=== PATIENT | female | born 1960 | race Caucasian/White ===

== ENCOUNTER 2018-11-03 09:54 | Observation (INO) | payer SELFPAY ==
[~2018-11-03] VITALS: Ht 162.6 cm; Wt 125.5 kg
[~2018-11-03 09:54] MED LIST: CELEBREX200 MG PO; CYMBALTA60 M1 PO; GUAIFEN AC 10120 ML PO; NORCO 325 MG-51 TAB PO; PREDNISONE20 M1 PO; ULTRAM50 MG PO; ZITHROMAX Z PA250 MG PO
[2018-11-03] MEDS ORDERED: GOOD NEIGHBOR200 M1 PO (10:28)
[2018-11-03 10:44] LABS: EOS # 0.1 (0.04-0.40); EOS % 1.3 % (1.0-5.0); HEMATOCRIT 47.1 % (37.0-47.0); HEMOGLOBIN 15.1 g/dL (12.5-16.0); LYMPH# 1.2 (1.50-4.00); MEAN CELL VOLUME 97 fl (78-100); MEAN CORPUSCULAR HEMOGLOBIN 31 pg (27-31); MEAN CORPUSCULAR HGB CONC 32 g/dL (33-37); MEAN PLATELET VOLUME 10.7 fl (7.4-10.4); MONO # 0.6 (0.20-0.80); NEU # 7.1 (1.40-6.50); PLATELET COUNT 235 K/mm3 (130-400); RED BLOOD COUNT 4.86 M/mm3 (4.10-5.30); RED CELL DISTRIBUTION WIDTH 13.8 % (11.5-14.5); WHITE BLOOD COUNT 9.1 K/mm3 (4.8-10.8)
[2018-11-03 10:58] LABS: ALBUMIN 4.1 g/dL (3.5-5.0); CALCIUM 10.2 mg/dL (8.4-10.2); POTASSIUM 3.9 mmol/L (3.6-5.0); TOTAL BILIRUBIN 0.8 mg/dL (0.2-1.3); TOTAL PROTEIN 7.6 g/dL (6.3-8.2)
[2018-11-03 11:39] LABS: URINE APPEARANCE HAZY; URINE COLOR YELLOW
[2018-11-03 11:40] LABS: URINE BILIRUBIN NEGATIVE (NEGATIVE); URINE GLUCOSE NEGATIVE (NEGATIVE); URINE KETONE NEGATIVE (NEGATIVE); URINE LEUKOCYTE ESTERASE NEGATIVE (NEGATIVE); URINE MUCUS PRESENT (NOT PRESENT); URINE NITRATE NEGATIVE (NEGATIVE); URINE PROTEIN(semi-quant) 1+ mg/dL (NEGATIVE); URINE UROBILINOGEN NORMAL (NORMAL); URINE WBC 0-1 /hpf (0-3)
[2018-11-03 11:41] LABS: URINE BLOOD TRACE (NEGATIVE)
[2018-11-03 18:54] VITALS: BP 127/81
[2018-11-03 18:56] VITALS: BP 127/81
[2018-11-03 23:21] VITALS: BP 142/90
[2018-11-04 03:11] VITALS: BP 114/70
[2018-11-04 06:30] VITALS: BP 106/68
[2018-11-04 08:28] LABS: CALCIUM 10.1 mg/dL (8.4-10.2); POTASSIUM 4.5 mmol/L (3.6-5.0)
[2018-11-04 08:32] LABS: HEMATOCRIT 48.1 % (37.0-47.0); HEMOGLOBIN 15.2 g/dL (12.5-16.0); MEAN CELL VOLUME 98 fl (78-100); MEAN CORPUSCULAR HEMOGLOBIN 31 pg (27-31); MEAN CORPUSCULAR HGB CONC 32 g/dL (33-37); MEAN PLATELET VOLUME 11.8 fl (7.4-10.4); PLATELET COUNT 199 K/mm3 (130-400); RED BLOOD COUNT 4.93 M/mm3 (4.10-5.30); RED CELL DISTRIBUTION WIDTH 13.6 % (11.5-14.5); WHITE BLOOD COUNT 8.8 K/mm3 (4.8-10.8)
[2018-11-04 09:15] LABS: LYMPHOCYTE 6 % (20-51); MONOCYTE 3 % (3-10); NEUTROPHILS 91 % (42-75)
[2018-11-04 11:00] VITALS: BP 139/71
[2018-11-04 15:00] VITALS: BP 136/63; BP 169/89
[2018-11-04 19:00] VITALS: BP 156/88
[2018-11-04 23:15] VITALS: BP 106/55
[2018-11-05 03:45] VITALS: BP 105/57
[2018-11-05 06:35] VITALS: BP 151/77
[2018-11-05 13:39] LABS: HEMATOCRIT 46.9 % (37.0-47.0); HEMOGLOBIN 14.8 g/dL (12.5-16.0); MEAN CELL VOLUME 98 fl (78-100); MEAN CORPUSCULAR HEMOGLOBIN 31 pg (27-31); MEAN CORPUSCULAR HGB CONC 32 g/dL (33-37); MEAN PLATELET VOLUME 11.4 fl (7.4-10.4); PLATELET COUNT 252 K/mm3 (130-400); RED BLOOD COUNT 4.79 M/mm3 (4.10-5.30); RED CELL DISTRIBUTION WIDTH 13.8 % (11.5-14.5); WHITE BLOOD COUNT 14.8 K/mm3 (4.8-10.8)
[2018-11-05 13:46] LABS: ALBUMIN 4.2 g/dL (3.5-5.0); CALCIUM 10.8 mg/dL (8.4-10.2); POTASSIUM 4.5 mmol/L (3.6-5.0); TOTAL BILIRUBIN 0.3 mg/dL (0.2-1.3); TOTAL PROTEIN 7.4 g/dL (6.3-8.2)
[2018-11-05 14:05] LABS: LYMPHOCYTE 7 % (20-51); MONOCYTE 5 % (3-10); NEUTROPHILS 88 % (42-75)
[2018-11-05 14:52] VITALS: BP 130/71
[2018-11-05 19:00] VITALS: BP 101/61
[2018-11-05 22:50] VITALS: BP 137/83
[2018-11-06 03:09] VITALS: BP 154/73
[2018-11-06 06:24] VITALS: BP 105/60
[2018-11-06 07:58] LABS: EOS % 0.1 % (1.0-5.0); HEMATOCRIT 46.8 % (37.0-47.0); HEMOGLOBIN 14.2 g/dL (12.5-16.0); LYMPH# 1.7 (1.50-4.00); MEAN CELL VOLUME 99 fl (78-100); MEAN CORPUSCULAR HEMOGLOBIN 30 pg (27-31); MEAN CORPUSCULAR HGB CONC 30 g/dL (33-37); MEAN PLATELET VOLUME 11.5 fl (7.4-10.4); MONO # 0.8 (0.20-0.80); NEU # 8.4 (1.40-6.50); PLATELET COUNT 247 K/mm3 (130-400); RED BLOOD COUNT 4.73 M/mm3 (4.10-5.30); RED CELL DISTRIBUTION WIDTH 13.9 % (11.5-14.5)
[2018-11-06 08:47] LABS: CALCIUM 10.8 mg/dL (8.4-10.2)
[2018-11-06 10:52] VITALS: BP 145/84
[2018-11-06 10:54] LABS: URINE APPEARANCE CLEAR; URINE BILIRUBIN NEGATIVE (NEGATIVE); URINE BLOOD NEGATIVE (NEGATIVE); URINE COLOR YELLOW; URINE GLUCOSE NEGATIVE (NEGATIVE); URINE KETONE NEGATIVE (NEGATIVE); URINE LEUKOCYTE ESTERASE NEGATIVE (NEGATIVE); URINE MUCUS PRESENT (NOT PRESENT); URINE NITRATE NEGATIVE (NEGATIVE); URINE PROTEIN(semi-quant) TRACE mg/dL (NEGATIVE); URINE UROBILINOGEN NORMAL (NORMAL); URINE WBC 0-1 /hpf (0-3)
[2018-11-06] MEDS ORDERED: IPRATROPIUM BROM3 M1 IH (11:06)
[2018-11-06] MEDS ORDERED: DOXYCYCLINE HYC50 M1 PO (11:06)
[2018-11-06] MEDS ORDERED: METOPROLOL SUCC25 M1 PO (11:06)
[2018-11-06] MEDS ORDERED: PANTOPRAZOLE SO40 MG PO (11:07)
[2018-11-06] MEDS ORDERED: HYDROCODONE-CHLO5 ML PO (11:07)
[2018-11-06] MEDS ORDERED: PREDNISONE20 MG PO (11:08)
[2018-11-06] MEDS ORDERED: AIRDUO RESPICL1 EAC1 IH (11:12)
[2018-11-06 15:33] VITALS: BP 128/75
[2018-11-06 19:03] VITALS: BP 160/66
[2018-11-06 23:03] VITALS: BP 133/61
[2018-11-07 02:58] VITALS: BP 152/69
[2018-11-07 06:06] VITALS: BP 141/60
[2018-11-07 06:12] LABS: EOS % 0.5 % (1.0-5.0); HEMATOCRIT 44.3 % (37.0-47.0); HEMOGLOBIN 13.8 g/dL (12.5-16.0); LYMPH# 2.2 (1.50-4.00); MEAN CELL VOLUME 100 fl (78-100); MEAN CORPUSCULAR HEMOGLOBIN 31 pg (27-31); MEAN CORPUSCULAR HGB CONC 31 g/dL (33-37); MEAN PLATELET VOLUME 11.4 fl (7.4-10.4); MONO # 0.8 (0.20-0.80); NEU # 5.2 (1.40-6.50); PLATELET COUNT 213 K/mm3 (130-400); RED BLOOD COUNT 4.45 M/mm3 (4.10-5.30); RED CELL DISTRIBUTION WIDTH 13.8 % (11.5-14.5); WHITE BLOOD COUNT 8.2 K/mm3 (4.8-10.8)
[2018-11-07 06:43] LABS: CALCIUM 10.3 mg/dL (8.4-10.2); POTASSIUM 4.1 mmol/L (3.6-5.0)
[2018-11-07] MEDS ORDERED: MIRALAX17 GM PO (08:33)
== END 2018-11-07 10:57 | disposition home or self-care (01) ==
LOC: ED 09:54 → MED/SURG 16:59
PROVIDERS: Nurse Practitioner Primary Care; ADMIT Family Medicine
DX: J44.1 Chronic obstructive pulmonary disease with (acute) exacerbation (principal); J96.11 Chronic respiratory failure with hypoxia; K21.9 Gastro-esophageal reflux disease without esophagitis; Z91.14 Patient's other noncompliance with medication regimen; I47.1 Supraventricular tachycardia; I10 Essential (primary) hypertension; G47.30 Sleep apnea, unspecified; G47.36 Sleep related hypoventilation in conditions classified elsewhere; E66.9 Obesity, unspecified; R73.9 Hyperglycemia, unspecified; Z79.82 Long term (current) use of aspirin; Z79.899 Other long term (current) drug therapy; F17.210 Nicotine dependence, cigarettes, uncomplicated; Z82.49 Family history of ischemic heart disease and other diseases of the circulatory system; Z83.3 Family history of diabetes mellitus; Z99.81 Dependence on supplemental oxygen; Z68.42 Body mass index [BMI] 45.0-49.9, adult
CPT/HCPCS: G0378; J1650; J1940; J2920; J7050; J7512

== ENCOUNTER → 2018-11-08 | Outpatient (CLI) | payer SELFPAY ==
[2018-11-07 06:06] VITALS: BP 141/60
[~2018-11-08] MED LIST changes: +AIRDUO RESPICL1 EAC1 IH; +DOXYCYCLINE HYC50 M1 PO; +GOOD NEIGHBOR200 M1 PO; +HYDROCODONE-CHLO5 ML PO; +IPRATROPIUM BROM3 M1 IH; +METOPROLOL SUCC25 M1 PO; +MIRALAX17 GM PO; +PANTOPRAZOLE SO40 MG PO; +PREDNISONE20 MG PO
== END ==
LOC: RAD 17:31
DX: I08.2 Rheumatic disorders of both aortic and tricuspid valves (principal); I47.1 Supraventricular tachycardia

== ENCOUNTER → 2018-11-22 | Outpatient (CLI) | payer OTHER ==
[2018-11-07 06:06] VITALS: BP 141/60
[2018-11-22 14:49] LABS: EOS # 0.2 (0.04-0.40); EOS % 2.5 % (1.0-5.0); HEMATOCRIT 45.1 % (37.0-47.0); HEMOGLOBIN 14.4 g/dL (12.5-16.0); LYMPH# 1.7 (1.50-4.00); MEAN CELL VOLUME 98 fl (78-100); MEAN CORPUSCULAR HEMOGLOBIN 31 pg (27-31); MEAN CORPUSCULAR HGB CONC 32 g/dL (33-37); MEAN PLATELET VOLUME 11.1 fl (7.4-10.4); MONO # 0.6 (0.20-0.80); NEU # 6.9 (1.40-6.50); PLATELET COUNT 190 K/mm3 (130-400); RED BLOOD COUNT 4.62 M/mm3 (4.10-5.30); RED CELL DISTRIBUTION WIDTH 14.1 % (11.5-14.5); WHITE BLOOD COUNT 9.4 K/mm3 (4.8-10.8)
[2018-11-22 15:28] LABS: ALBUMIN 3.8 g/dL (3.5-5.0); CALCIUM 10.2 mg/dL (8.4-10.2); POTASSIUM 4.4 mmol/L (3.6-5.0); TOTAL BILIRUBIN 0.6 mg/dL (0.2-1.3); TOTAL PROTEIN 6.8 g/dL (6.3-8.2)
[2018-11-23 03:02] LABS: T3 TOTAL 131 ng/dL (87-178)
== END ==
LOC: LAB 14:27
PROVIDERS: Internal Medicine
DX: J96.91 Respiratory failure, unspecified with hypoxia (principal); I10 Essential (primary) hypertension; I47.1 Supraventricular tachycardia; R94.6 Abnormal results of thyroid function studies

== ENCOUNTER → 2018-11-23 | Outpatient (CLI) | payer OTHER ==
[~2018-11-23] VITALS: Ht 162.6 cm; Wt 125.5 kg
[2018-11-23 10:10] VITALS: BP 144/84
== END ==
LOC: AMSURD 09:59
DX: R06.02 Shortness of breath (principal)

== ENCOUNTER → 2018-12-13 | Outpatient (CLI) | payer OTHER ==
[2018-11-23 10:10] VITALS: BP 144/84
== END ==
LOC: RAD 14:42
DX: E04.1 Nontoxic single thyroid nodule (principal); E05.90 Thyrotoxicosis, unspecified without thyrotoxic crisis or storm

== ENCOUNTER → 2018-12-31 | Outpatient (CLI) | payer OTHER ==
[2018-11-23 10:10] VITALS: BP 144/84
[2019-01-01 04:02] LABS: T3 TOTAL 126 ng/dL (87-178)
== END ==
LOC: LAB 16:01
PROVIDERS: Internal Medicine
DX: J96.91 Respiratory failure, unspecified with hypoxia (principal); J96.92 Respiratory failure, unspecified with hypercapnia; I47.1 Supraventricular tachycardia; I10 Essential (primary) hypertension; R94.6 Abnormal results of thyroid function studies

== ENCOUNTER → 2019-01-24 | Outpatient (CLI) | payer OTHER ==
[2018-11-23 10:10] VITALS: BP 144/84
[2019-01-24 18:18] LABS: URINE APPEARANCE CLEAR; URINE BILIRUBIN NEGATIVE (NEGATIVE); URINE BLOOD 50 ery/uL (NEGATIVE); URINE COLOR LIGHT YELLOW; URINE GLUCOSE NEGATIVE (NEGATIVE); URINE KETONE NEGATIVE (NEGATIVE); URINE LEUKOCYTE ESTERASE TRACE (NEGATIVE); URINE NITRATE NEGATIVE (NEGATIVE); URINE PROTEIN(semi-quant) NEGATIVE (NEGATIVE); URINE UROBILINOGEN NORMAL (NORMAL)
== END ==
LOC: LAB 16:58
PROVIDERS: Internal Medicine
DX: N30.00 Acute cystitis without hematuria (principal)

== ENCOUNTER → 2019-02-07 | Outpatient (CLI) | payer OTHER ==
[2018-11-23 10:10] VITALS: BP 144/84
[2019-02-07 14:37] LABS: CALCIUM 10.2 mg/dL (8.4-10.2); TOTAL BILIRUBIN 0.7 mg/dL (0.2-1.3)
[2019-02-07 15:50] LABS: POTASSIUM 3.7 mmol/L (3.6-5.0)
== END ==
LOC: LAB 11:50
PROVIDERS: Internal Medicine
DX: E78.5 Hyperlipidemia, unspecified (principal)

== ENCOUNTER 2019-04-01 15:40 | Outpatient (RCR) | payer OTHER ==
[2018-11-23 10:10] VITALS: BP 144/84
== END 2019-04-09 | disposition home or self-care (01) ==
LOC: CARDREHAB
DX: Z48.812 Encounter for surgical aftercare following surgery on the circulatory system (principal); Z95.5 Presence of coronary angioplasty implant and graft

== ENCOUNTER → 2019-05-07 | Outpatient (CLI) | payer OTHER ==
[2018-11-23 10:10] VITALS: BP 144/84
[2019-05-07 17:20] LABS: EOS # 0.4 (0.04-0.40); EOS % 5.5 % (1.0-5.0); HEMATOCRIT 41.6 % (37.0-47.0); LYMPH# 1.6 (1.50-4.00); MEAN CELL VOLUME 94 fl (78-100); MEAN CORPUSCULAR HEMOGLOBIN 29 pg (27-31); MEAN CORPUSCULAR HGB CONC 31 g/dL (33-37); MEAN PLATELET VOLUME 10.9 fl (7.4-10.4); MONO # 0.5 (0.20-0.80); NEU # 4.6 (1.40-6.50); PLATELET COUNT 217 K/mm3 (130-400); RED BLOOD COUNT 4.42 M/mm3 (4.10-5.30); RED CELL DISTRIBUTION WIDTH 14.2 % (11.5-14.5); WHITE BLOOD COUNT 7.1 K/mm3 (4.8-10.8)
[2019-05-07 17:58] LABS: ALBUMIN 4.1 g/dL (3.5-5.0); CALCIUM 10.5 mg/dL (8.3-10.5); POTASSIUM 4.1 mmol/L (3.5-5.1); TOTAL BILIRUBIN 0.6 mg/dL (0.2-1.2); TOTAL PROTEIN 7.1 g/dL (6.4-8.3)
== END ==
LOC: LAB 16:56
PROVIDERS: Internal Medicine
DX: I51.7 Cardiomegaly (principal); E03.4 Atrophy of thyroid (acquired)

== ENCOUNTER 2019-08-02 17:29 | Emergency (ER) | payer OTHER ==
[~2019-08-02] VITALS: Ht 162.6 cm; Wt 142.6 kg
[2019-08-02 18:15] LABS: EOS # 0.3 (0.04-0.40); EOS % 4.3 % (1.0-5.0); HEMATOCRIT 41.1 % (37.0-47.0); LYMPH# 1.6 (1.50-4.00); MEAN CELL VOLUME 93 fl (78-100); MEAN CORPUSCULAR HEMOGLOBIN 30 pg (27-31); MEAN CORPUSCULAR HGB CONC 32 g/dL (33-37); MEAN PLATELET VOLUME 10.7 fl (7.4-10.4); MONO # 0.6 (0.20-0.80); NEU # 4.7 (1.40-6.50); PLATELET COUNT 224 K/mm3 (130-400); RED BLOOD COUNT 4.41 M/mm3 (4.10-5.30); RED CELL DISTRIBUTION WIDTH 14.2 % (11.5-14.5); WHITE BLOOD COUNT 7.2 K/mm3 (4.8-10.8)
[2019-08-02 18:25] LABS: POTASSIUM 3.8 mmol/L (3.5-5.1); SODIUM 140 mmol/L (136-145)
[2019-08-02 18:26] LABS: CALCIUM 10.1 mg/dL (8.3-10.5)
[2019-08-02 18:27] LABS: GLUCOSE 104 mg/dL (65-105); TOTAL PROTEIN 7.6 g/dL (6.4-8.3)
[2019-08-02 18:28] LABS: CARBON DIOXIDE 28 mmol/L (22-29)
[2019-08-02 18:29] LABS: TOTAL BILIRUBIN 0.6 mg/dL (0.2-1.2)
[2019-08-02 18:32] LABS: AST-SGOT 9 U/L (5-34)
[2019-08-02 18:34] LABS: ALT/SGPT 10 U/L (0-55)
[2019-08-02 18:40] LABS: TROPONIN-I < 0.03 ng/mL (<0.030)
[2019-08-02 18:58] VITALS: BP 120/55
[2019-08-02] MEDS ORDERED: CARVEDILOL12.5 MG PO (19:30)
[2019-08-02] MEDS ORDERED: ATORVASTATIN CA40 MG PO (19:30)
[2019-08-02] MEDS ORDERED: POTASSIUM CHLO20 ME4 PO (19:31)
[2019-08-02] MEDS ORDERED: FUROSEMIDE20 MG PO (19:31)
[2019-08-02] MEDS ORDERED: LORAZEPAM0.5 M1 PO (19:31)
[2019-08-02] MEDS ORDERED: TAPAZOLE 5MG TAB5 MG PO (19:31)
[2019-08-02] MEDS ORDERED: CLOPIDOGREL75 M2 PO (19:31)
[2019-08-02] MEDS ORDERED: ASPIRIN ADULT L81 M3 PO (19:32)
[2019-08-02] MEDS ORDERED: PROTONIX20 M1 PO (19:32)
[2019-08-02] MEDS ORDERED: PROTONIX TR40 M1 PO (19:34)
== END 2019-08-02 22:00 | disposition home or self-care (01) ==
LOC: ED 17:29
PROVIDERS: Family Medicine
DX: I25.119 Atherosclerotic heart disease of native coronary artery with unspecified angina pectoris (principal); K21.9 Gastro-esophageal reflux disease without esophagitis; J44.9 Chronic obstructive pulmonary disease, unspecified; Z99.81 Dependence on supplemental oxygen; Z95.5 Presence of coronary angioplasty implant and graft; Z90.49 Acquired absence of other specified parts of digestive tract; Z90.710 Acquired absence of both cervix and uterus; Z87.891 Personal history of nicotine dependence; Z79.02 Long term (current) use of antithrombotics/antiplatelets; Z79.82 Long term (current) use of aspirin

== ENCOUNTER → 2019-08-12 | Outpatient (CLI) | payer OTHER ==
[2019-08-02 18:58] VITALS: BP 120/55
[~2019-08-12] MED LIST changes: +ASPIRIN ADULT L81 M3 PO; +ATORVASTATIN CA40 MG PO; +CARVEDILOL12.5 MG PO; +CLOPIDOGREL75 M2 PO; +FUROSEMIDE20 MG PO; +LORAZEPAM0.5 M1 PO; +POTASSIUM CHLO20 ME4 PO; +PROTONIX TR40 M1 PO; +PROTONIX20 M1 PO; +TAPAZOLE 5MG TAB5 MG PO
[2019-08-12 08:53] LABS: EOS # 0.3 (0.04-0.40); EOS % 3.6 % (1.0-5.0); HEMATOCRIT 41.6 % (37.0-47.0); HEMOGLOBIN 13.1 g/dL (12.5-16.0); LYMPH# 1.1 (1.50-4.00); MEAN CELL VOLUME 94 fl (78-100); MEAN CORPUSCULAR HEMOGLOBIN 30 pg (27-31); MEAN CORPUSCULAR HGB CONC 32 g/dL (33-37); MEAN PLATELET VOLUME 10.9 fl (7.4-10.4); MONO # 0.5 (0.20-0.80); NEU # 5.4 (1.40-6.50); PLATELET COUNT 199 K/mm3 (130-400); RED BLOOD COUNT 4.44 M/mm3 (4.10-5.30); RED CELL DISTRIBUTION WIDTH 14.4 % (11.5-14.5); WHITE BLOOD COUNT 7.2 K/mm3 (4.8-10.8)
[2019-08-12 09:04] LABS: ALBUMIN 3.8 g/dL (3.5-5.0); POTASSIUM 4.5 mmol/L (3.5-5.1)
[2019-08-12 09:05] LABS: CALCIUM 9.9 mg/dL (8.3-10.5)
[2019-08-12 09:06] LABS: TOTAL PROTEIN 7.2 g/dL (6.4-8.3)
[2019-08-12 09:08] LABS: TOTAL BILIRUBIN 0.5 mg/dL (0.2-1.2)
[2019-08-12 09:37] LABS: MAGNESIUM 1.93 mg/dL (1.60-2.60)
== END ==
LOC: LAB 08:34
PROVIDERS: Internal Medicine
DX: J96.91 Respiratory failure, unspecified with hypoxia (principal); J96.92 Respiratory failure, unspecified with hypercapnia; I10 Essential (primary) hypertension; I47.1 Supraventricular tachycardia; R94.6 Abnormal results of thyroid function studies

== ENCOUNTER 2019-09-29 16:49 | Emergency (ER) | payer OTHER ==
[~2019-09-29] VITALS: Ht 162.6 cm; Wt 145.5 kg
[2019-09-29 17:41] LABS: EOS # 0.3 (0.04-0.40); HEMATOCRIT 41.4 % (37.0-47.0); HEMOGLOBIN 12.9 g/dL (12.5-16.0); LYMPH# 1.3 (1.50-4.00); MEAN CELL VOLUME 94 fl (78-100); MEAN CORPUSCULAR HEMOGLOBIN 29 pg (27-31); MEAN CORPUSCULAR HGB CONC 31 g/dL (33-37); MEAN PLATELET VOLUME 10.8 fl (7.4-10.4); MONO # 0.5 (0.20-0.80); NEU # 4.2 (1.40-6.50); PLATELET COUNT 213 K/mm3 (130-400); RED CELL DISTRIBUTION WIDTH 14.3 % (11.5-14.5); WHITE BLOOD COUNT 6.4 K/mm3 (4.8-10.8)
[2019-09-29 19:09] VITALS: BP 153/74
== END 2019-09-29 19:15 | disposition home or self-care (01) ==
LOC: ED 16:49
PROVIDERS: Family Medicine
DX: R05 Cough (principal); K21.9 Gastro-esophageal reflux disease without esophagitis; J44.9 Chronic obstructive pulmonary disease, unspecified; I25.10 Atherosclerotic heart disease of native coronary artery without angina pectoris; Z79.1 Long term (current) use of non-steroidal anti-inflammatories (NSAID); Z79.02 Long term (current) use of antithrombotics/antiplatelets; Z79.82 Long term (current) use of aspirin; Z87.891 Personal history of nicotine dependence; Z95.5 Presence of coronary angioplasty implant and graft

== ENCOUNTER 2019-11-25 11:01 | Emergency (ER) | payer OTHER ==
[~2019-11-25] VITALS: Wt 140.9 kg
[2019-11-25 11:29] LABS: EOS # 0.2 (0.04-0.40); EOS % 2.3 % (1.0-5.0); HEMATOCRIT 37.8 % (37.0-47.0); HEMOGLOBIN 11.8 g/dL (12.5-16.0); LYMPH# 1.1 (1.50-4.00); MEAN CELL VOLUME 93 fl (78-100); MEAN CORPUSCULAR HEMOGLOBIN 29 pg (27-31); MEAN CORPUSCULAR HGB CONC 31 g/dL (33-37); MONO # 0.7 (0.20-0.80); NEU # 6.2 (1.40-6.50); PLATELET COUNT 186 K/mm3 (130-400); RED BLOOD COUNT 4.08 M/mm3 (4.10-5.30); RED CELL DISTRIBUTION WIDTH 14.6 % (11.5-14.5); WHITE BLOOD COUNT 8.1 K/mm3 (4.8-10.8)
[2019-11-25 11:35] LABS: ALBUMIN 3.8 g/dL (3.5-5.0); POTASSIUM 4.1 mmol/L (3.5-5.1)
[2019-11-25 11:36] LABS: CALCIUM 10.3 mg/dL (8.3-10.5)
[2019-11-25 11:37] LABS: TOTAL PROTEIN 7.4 g/dL (6.4-8.3)
[2019-11-25 11:39] LABS: TOTAL BILIRUBIN 1.6 mg/dL (0.2-1.2)
[2019-11-25] MEDS ORDERED: ZOFRAN4 M2 PO (13:44)
[2019-11-25 15:05] VITALS: BP 125/57
== END 2019-11-25 14:10 | disposition home or self-care (01) ==
LOC: ED 11:01
PROVIDERS: Nurse Practitioner Primary Care
DX: R19.7 Diarrhea, unspecified (principal); R11.2 Nausea with vomiting, unspecified; I11.0 Hypertensive heart disease with heart failure; I50.9 Heart failure, unspecified; I25.10 Atherosclerotic heart disease of native coronary artery without angina pectoris; K21.9 Gastro-esophageal reflux disease without esophagitis; Z79.1 Long term (current) use of non-steroidal anti-inflammatories (NSAID); Z79.02 Long term (current) use of antithrombotics/antiplatelets; Z79.82 Long term (current) use of aspirin; Z95.5 Presence of coronary angioplasty implant and graft
CPT/HCPCS: J2405; J7030

== ENCOUNTER 2020-01-13 17:01 | Observation (INO) | payer OTHER ==
[~2020-01-13] VITALS: Ht 162.6 cm; Wt 141.5 kg
[~2020-01-13 17:01] MED LIST changes: +ZOFRAN4 M2 PO
[2020-01-13 17:35] LABS: EOS # 0.1 (0.04-0.40); EOS % 1.6 % (1.0-5.0); HEMATOCRIT 38.9 % (37.0-47.0); HEMOGLOBIN 11.4 g/dL (12.5-16.0); MEAN CELL VOLUME 95 fl (78-100); MEAN CORPUSCULAR HEMOGLOBIN 28 pg (27-31); MEAN PLATELET VOLUME 10.6 fl (7.4-10.4); MONO # 0.4 (0.20-0.80); NEU # 2.6 (1.40-6.50); PLATELET COUNT 180 K/mm3 (130-400); RED BLOOD COUNT 4.11 M/mm3 (4.10-5.30); RED CELL DISTRIBUTION WIDTH 16.2 % (11.5-14.5); WHITE BLOOD COUNT 3.8 K/mm3 (4.8-10.8)
[2020-01-13 17:39] LABS: LYMPH# 0.6 (1.50-4.00); MEAN CORPUSCULAR HGB CONC 29 g/dL (33-37)
[2020-01-13] MEDS ORDERED: ZOFRAN4 M2 PO ×2 (17:41)
[2020-01-13 17:44] LABS: ALBUMIN 3.8 g/dL (3.5-5.0)
[2020-01-13 17:45] LABS: CALCIUM 9.7 mg/dL (8.3-10.5)
[2020-01-13 17:47] LABS: TOTAL PROTEIN 6.8 g/dL (6.4-8.3)
[2020-01-13 17:48] LABS: TOTAL BILIRUBIN 0.9 mg/dL (0.2-1.2)
[2020-01-13 19:57] VITALS: BP 155/78
[2020-01-13] MEDS ORDERED: LEXAPRO 10MG10 MG PO (20:07)
[2020-01-13] MEDS ORDERED: NORVASC 10MG10 MG PO (20:08)
[2020-01-13] MEDS ORDERED: ATIVAN0.5 MG PO (20:09)
[2020-01-13 20:41] VITALS: BP 155/78
[2020-01-13] MEDS ORDERED: COREG 25MG25 MG/TAB PO (21:40)
[2020-01-13 21:47] VITALS: BP 144/69
[2020-01-14 02:02] VITALS: BP 151/84
[2020-01-14 05:36] VITALS: BP 151/75
[2020-01-14 10:20] VITALS: BP 112/59
[2020-01-14 14:17] VITALS: BP 109/51
[2020-01-14 14:42] LABS: HEMATOCRIT 42.2 % (37.0-47.0); HEMOGLOBIN 12.6 g/dL (12.5-16.0); MEAN CELL VOLUME 94 fl (78-100); MEAN CORPUSCULAR HEMOGLOBIN 28 pg (27-31); MEAN CORPUSCULAR HGB CONC 30 g/dL (33-37); MEAN PLATELET VOLUME 10.7 fl (7.4-10.4); PLATELET COUNT 207 K/mm3 (130-400); RED BLOOD COUNT 4.49 M/mm3 (4.10-5.30); RED CELL DISTRIBUTION WIDTH 15.7 % (11.5-14.5); WHITE BLOOD COUNT 4.1 K/mm3 (4.8-10.8)
[2020-01-14 14:52] LABS: POTASSIUM 4.1 mmol/L (3.5-5.1)
[2020-01-14 14:53] LABS: CALCIUM 10.2 mg/dL (8.3-10.5)
[2020-01-14 15:01] LABS: LYMPHOCYTE 13 % (20-51); MONOCYTE 4 % (3-10); NEUTROPHILS 83 % (42-75)
[2020-01-14 18:27] VITALS: BP 122/67
[2020-01-14 21:50] VITALS: BP 124/53
[2020-01-15 02:00] VITALS: BP 127/54
[2020-01-15 06:11] VITALS: BP 145/63
[2020-01-15] MEDS ORDERED: OSELTAMIVIR PHO75 MG PO (08:31)
[2020-01-15] MEDS ORDERED: PREDNISONE20 M1 PO (08:33)
[2020-01-15 10:37] VITALS: BP 143/70
== END 2020-01-15 10:25 | disposition home or self-care (01) ==
LOC: ED 17:01 → MED/SURG 19:23
PROVIDERS: ADMIT Nurse Practitioner Primary Care
DX: R50.9 Fever, unspecified (principal); J44.0 Chronic obstructive pulmonary disease with (acute) lower respiratory infection; J11.1 Influenza due to unidentified influenza virus with other respiratory manifestations; I10 Essential (primary) hypertension; I25.10 Atherosclerotic heart disease of native coronary artery without angina pectoris; E66.01 Morbid (severe) obesity due to excess calories; G47.33 Obstructive sleep apnea (adult) (pediatric); J96.10 Chronic respiratory failure, unspecified whether with hypoxia or hypercapnia; Z79.82 Long term (current) use of aspirin; Z87.891 Personal history of nicotine dependence; Z99.81 Dependence on supplemental oxygen
CPT/HCPCS: G0378; J1650; J2930; J7030

== ENCOUNTER → 2020-03-16 | Outpatient (CLI) | payer OTHER ==
[2020-02-25 15:20] VITALS: BP 136/68
[~2020-03-16] MED LIST changes: +ATIVAN0.5 MG PO; +COREG 25MG25 MG/TAB PO; +LEXAPRO 10MG10 MG PO; +NORVASC 10MG10 MG PO; +OSELTAMIVIR PHO75 MG PO; +PREDNISONE10 MG PO
[2020-03-16 10:54] LABS: POTASSIUM 4.6 mmol/L (3.5-5.1)
[2020-03-16 10:55] LABS: ALBUMIN 4.2 g/dL (3.5-5.0)
[2020-03-16 10:56] LABS: CALCIUM 10.2 mg/dL (8.3-10.5)
[2020-03-16 10:57] LABS: TOTAL PROTEIN 6.9 g/dL (6.4-8.3)
[2020-03-16 11:03] LABS: HEMATOCRIT 42.1 % (37.0-47.0); HEMOGLOBIN 13.1 g/dL (12.5-16.0); MEAN CELL VOLUME 95 fl (78-100); MEAN CORPUSCULAR HEMOGLOBIN 30 pg (27-31); MEAN CORPUSCULAR HGB CONC 31 g/dL (33-37); MEAN PLATELET VOLUME 10.3 fl (7.4-10.4); PLATELET COUNT 214 K/mm3 (130-400); RED BLOOD COUNT 4.44 M/mm3 (4.10-5.30); RED CELL DISTRIBUTION WIDTH 17.3 % (11.5-14.5); WHITE BLOOD COUNT 12.2 K/mm3 (4.8-10.8)
[2020-03-16 11:04] LABS: MAGNESIUM 2.19 mg/dL (1.60-2.60)
[2020-03-16 12:15] LABS: NEUTROPHILS 84 % (42-75)
[2020-03-16 12:16] LABS: ERYTHROCYTE SEDIMENTATION RATE 4 mm/hr (0-30); LYMPHOCYTE 11 % (20-51); MONOCYTE 4 % (3-10); OVALOCYTES 1+
== END ==
LOC: LAB 10:18
PROVIDERS: Internal Medicine
DX: Z12.11 Encounter for screening for malignant neoplasm of colon (principal); I25.10 Atherosclerotic heart disease of native coronary artery without angina pectoris; I47.1 Supraventricular tachycardia; K90.9 Intestinal malabsorption, unspecified; R73.02 Impaired glucose tolerance (oral)

== ENCOUNTER → 2020-03-27 | Outpatient (CLI) | payer OTHER ==
[2020-02-25 15:20] VITALS: BP 136/68
== END ==
LOC: MAMMO 08:22
DX: Z12.31 Encounter for screening mammogram for malignant neoplasm of breast (principal); M85.80 Other specified disorders of bone density and structure, unspecified site; M81.0 Age-related osteoporosis without current pathological fracture; E05.90 Thyrotoxicosis, unspecified without thyrotoxic crisis or storm; E01.0 Iodine-deficiency related diffuse (endemic) goiter

== ENCOUNTER 2020-05-18 15:45 | Observation (INO) | payer OTHER ==
[~2020-05-18] VITALS: Ht 165.1 cm; Wt 153.8 kg
[2020-05-18 16:09] LABS: EOS # 0.3 (0.04-0.40); EOS % 3.8 % (1.0-5.0); HEMOGLOBIN 12.8 g/dL (12.5-16.0); LYMPH# 1.3 (1.50-4.00); MEAN CELL VOLUME 94 fl (78-100); MEAN CORPUSCULAR HEMOGLOBIN 29 pg (27-31); MEAN CORPUSCULAR HGB CONC 31 g/dL (33-37); MEAN PLATELET VOLUME 10.9 fl (7.4-10.4); MONO # 0.7 (0.20-0.80); NEU # 5.4 (1.40-6.50); PLATELET COUNT 257 K/mm3 (130-400); RED BLOOD COUNT 4.45 M/mm3 (4.10-5.30); WHITE BLOOD COUNT 7.7 K/mm3 (4.8-10.8)
[2020-05-18] MEDS ORDERED: METOLAZONE5 MG PO (16:09)
[2020-05-18 16:21] LABS: ALBUMIN 4.4 g/dL (3.5-5.0)
[2020-05-18 16:22] LABS: CALCIUM 10.8 mg/dL (8.3-10.5)
[2020-05-18 16:24] LABS: POTASSIUM 2.8 mmol/L (3.5-5.1); TOTAL PROTEIN 7.8 g/dL (6.4-8.3)
[2020-05-18 16:25] LABS: TOTAL BILIRUBIN 0.8 mg/dL (0.2-1.2)
[2020-05-18 18:22] VITALS: BP 146/73
[2020-05-18 19:34] VITALS: BP 146/73
[2020-05-18 23:13] VITALS: BP 141/80
[2020-05-19] VITALS (7 sets, daily range): BP systolic 96–147; BP diastolic 51–75
[2020-05-19 07:20] LABS: CALCIUM 9.9 mg/dL (8.3-10.5)
[2020-05-19 07:27] LABS: MAGNESIUM 1.72 mg/dL (1.60-2.60)
[2020-05-20 01:55] VITALS: BP 147/72
[2020-05-20 05:54] VITALS: BP 135/68
[2020-05-20 07:56] LABS: CALCIUM 10.4 mg/dL (8.3-10.5)
[2020-05-20 08:34] LABS: POTASSIUM 2.6 mmol/L (3.5-5.1)
[2020-05-20 09:50] VITALS: BP 132/62
[2020-05-20 14:20] VITALS: BP 147/66
[2020-05-20 15:11] LABS: POTASSIUM 3.2 mmol/L (3.5-5.1)
[2020-05-20] MEDS ORDERED: POTASSIUM CHLO20 ME4 PO (15:44)
[2020-05-20] MEDS ORDERED: ULTRAM50 M1 PO (15:47)
== END 2020-05-20 16:25 | disposition home or self-care (01) ==
LOC: ED 15:45 → MED/SURG 16:49
PROVIDERS: Family Medicine; ADMIT Nurse Practitioner Primary Care
DX: R60.0 Localized edema (principal); E87.6 Hypokalemia; J44.9 Chronic obstructive pulmonary disease, unspecified; J96.10 Chronic respiratory failure, unspecified whether with hypoxia or hypercapnia; I47.1 Supraventricular tachycardia; I10 Essential (primary) hypertension; I25.10 Atherosclerotic heart disease of native coronary artery without angina pectoris; G47.33 Obstructive sleep apnea (adult) (pediatric); F17.210 Nicotine dependence, cigarettes, uncomplicated; E66.9 Obesity, unspecified; Z68.43 Body mass index [BMI] 50.0-59.9, adult; Z79.82 Long term (current) use of aspirin; Z79.899 Other long term (current) drug therapy; Z95.5 Presence of coronary angioplasty implant and graft
CPT/HCPCS: G0378; J1650; J1940; J3480

== ENCOUNTER → 2020-05-26 | Outpatient (CLI) | payer OTHER ==
[2020-05-20 14:20] VITALS: BP 147/66
[~2020-05-26] MED LIST changes: +METOLAZONE5 MG PO; +ULTRAM50 M1 PO
[2020-05-26 11:36] LABS: EOS # 0.3 (0.04-0.40); EOS % 4.2 % (1.0-5.0); HEMATOCRIT 42.6 % (37.0-47.0); HEMOGLOBIN 12.9 g/dL (12.5-16.0); LYMPH# 1.3 (1.50-4.00); MEAN CELL VOLUME 94 fl (78-100); MEAN CORPUSCULAR HEMOGLOBIN 29 pg (27-31); MEAN CORPUSCULAR HGB CONC 30 g/dL (33-37); MEAN PLATELET VOLUME 11.2 fl (7.4-10.4); MONO # 0.6 (0.20-0.80); PLATELET COUNT 257 K/mm3 (130-400); RED BLOOD COUNT 4.52 M/mm3 (4.10-5.30); RED CELL DISTRIBUTION WIDTH 14.9 % (11.5-14.5); WHITE BLOOD COUNT 7.3 K/mm3 (4.8-10.8)
[2020-05-26 11:42] LABS: ALBUMIN 4.3 g/dL (3.5-5.0)
[2020-05-26 11:43] LABS: POTASSIUM 3.4 mmol/L (3.5-5.1)
[2020-05-26 11:44] LABS: CALCIUM 10.4 mg/dL (8.3-10.5)
[2020-05-26 11:45] LABS: TOTAL PROTEIN 8.1 g/dL (6.4-8.3)
[2020-05-26 11:47] LABS: TOTAL BILIRUBIN 0.8 mg/dL (0.2-1.2)
[2020-05-26 11:51] LABS: MAGNESIUM 1.74 mg/dL (1.60-2.60)
== END ==
LOC: LAB 09:15
PROVIDERS: Physician Assistant
DX: I25.10 Atherosclerotic heart disease of native coronary artery without angina pectoris (principal); I47.1 Supraventricular tachycardia; K90.9 Intestinal malabsorption, unspecified; E87.6 Hypokalemia; R60.0 Localized edema

== ENCOUNTER → 2020-06-02 | Outpatient (CLI) | payer OTHER ==
[2020-05-20 14:20] VITALS: BP 147/66
[2020-06-02 12:35] LABS: POTASSIUM 4.4 mmol/L (3.5-5.1)
[2020-06-02 12:36] LABS: CALCIUM 10.5 mg/dL (8.3-10.5)
[2020-06-02 12:42] LABS: MAGNESIUM 1.77 mg/dL (1.60-2.60)
== END ==
LOC: LAB 11:47
PROVIDERS: Internal Medicine
DX: I47.1 Supraventricular tachycardia (principal); I10 Essential (primary) hypertension

== ENCOUNTER → 2020-06-22 | Outpatient (CLI) | payer OTHER ==
[2020-06-22 13:52] LABS: POTASSIUM 4.6 mmol/L (3.5-5.1)
[2020-06-22 13:53] LABS: CALCIUM 10.4 mg/dL (8.3-10.5)
[2020-06-22 13:59] LABS: MAGNESIUM 1.95 mg/dL (1.60-2.60)
== END ==
LOC: LAB 13:32
PROVIDERS: Internal Medicine
DX: I10 Essential (primary) hypertension (principal)

== ENCOUNTER → 2020-09-01 | Outpatient (CLI) | payer OTHER ==
[2020-09-01 14:36] LABS: EOS # 0.3 (0.04-0.40); EOS % 4.3 % (1.0-5.0); HEMATOCRIT 41.6 % (37.0-47.0); HEMOGLOBIN 12.9 g/dL (12.5-16.0); LYMPH# 1.4 (1.50-4.00); MEAN CELL VOLUME 96 fl (78-100); MEAN CORPUSCULAR HEMOGLOBIN 30 pg (27-31); MEAN CORPUSCULAR HGB CONC 31 g/dL (33-37); MEAN PLATELET VOLUME 10.7 fl (7.4-10.4); MONO # 0.6 (0.20-0.80); NEU # 5.4 (1.40-6.50); PLATELET COUNT 240 K/mm3 (130-400); RED BLOOD COUNT 4.35 M/mm3 (4.10-5.30); RED CELL DISTRIBUTION WIDTH 15.8 % (11.5-14.5); WHITE BLOOD COUNT 7.8 K/mm3 (4.8-10.8)
[2020-09-01 14:46] LABS: ALBUMIN 4.4 g/dL (3.5-5.0)
[2020-09-01 14:47] LABS: POTASSIUM 4.3 mmol/L (3.5-5.1)
[2020-09-01 14:48] LABS: CALCIUM 10.1 mg/dL (8.3-10.5)
[2020-09-01 14:49] LABS: TOTAL PROTEIN 7.8 g/dL (6.4-8.3)
[2020-09-01 14:51] LABS: TOTAL BILIRUBIN 0.6 mg/dL (0.2-1.2)
== END ==
LOC: RAD 14:10
PROVIDERS: Internal Medicine
DX: S52.302A Unspecified fracture of shaft of left radius, initial encounter for closed fracture (principal); I25.10 Atherosclerotic heart disease of native coronary artery without angina pectoris; K90.9 Intestinal malabsorption, unspecified; I47.1 Supraventricular tachycardia; R73.02 Impaired glucose tolerance (oral)

== ENCOUNTER 2020-10-17 22:02 | Emergency (ER) | payer OTHER ==
[~2020-10-17] VITALS: Ht 162.6 cm; Wt 159.7 kg
[2020-10-17] MEDS ORDERED: DERMACINRX5000 UNI1 PO (22:27)
[2020-10-17] MEDS ORDERED: VITAMIN D31250 MCG PO (22:28)
[2020-10-17] MEDS ORDERED: NITROGLYCERIN0.4 M1 SL (22:28)
[2020-10-17 23:36] LABS: EOS # 0.3 (0.04-0.40); EOS % 3.2 % (1.0-5.0); HEMATOCRIT 38.9 % (37.0-47.0); HEMOGLOBIN 11.7 g/dL (12.5-16.0); LYMPH# 1.2 (1.50-4.00); MEAN CELL VOLUME 97 fl (78-100); MEAN CORPUSCULAR HEMOGLOBIN 29 pg (27-31); MEAN CORPUSCULAR HGB CONC 30 g/dL (33-37); MEAN PLATELET VOLUME 10.7 fl (7.4-10.4); MONO # 0.7 (0.20-0.80); NEU # 6.4 (1.40-6.50); PLATELET COUNT 208 K/mm3 (130-400); RED CELL DISTRIBUTION WIDTH 14.8 % (11.5-14.5); WHITE BLOOD COUNT 8.7 K/mm3 (4.8-10.8)
[2020-10-17 23:47] LABS: POTASSIUM 4.1 mmol/L (3.5-5.1)
[2020-10-17 23:48] LABS: CALCIUM 9.5 mg/dL (8.3-10.5)
[2020-10-17 23:50] LABS: PARTIAL THROMBOPLASTIN TIME 22.3 SECONDS (21.0-32.0); PROTHROMBIN TIME 10.6 SECONDS (9.0-12.0); TOTAL PROTEIN 6.8 g/dL (6.4-8.3)
[2020-10-17 23:51] LABS: TOTAL BILIRUBIN 0.9 mg/dL (0.2-1.2)
[2020-10-18 04:14] VITALS: BP 103/55
== END 2020-10-18 04:06 | disposition home or self-care (01) ==
LOC: ED 22:02
PROVIDERS: Family Medicine
DX: R07.9 Chest pain, unspecified (principal); I25.10 Atherosclerotic heart disease of native coronary artery without angina pectoris; G47.30 Sleep apnea, unspecified; I50.9 Heart failure, unspecified; K21.9 Gastro-esophageal reflux disease without esophagitis; I10 Essential (primary) hypertension; E78.5 Hyperlipidemia, unspecified; E66.01 Morbid (severe) obesity due to excess calories; Z95.9 Presence of cardiac and vascular implant and graft, unspecified; Z87.891 Personal history of nicotine dependence; Z79.02 Long term (current) use of antithrombotics/antiplatelets; Z79.82 Long term (current) use of aspirin; Z68.44 Body mass index [BMI] 60.0-69.9, adult

== ENCOUNTER 2020-11-17 12:05 | Emergency (ER) | payer OTHER ==
[~2020-11-17] VITALS: Wt 163.7 kg
[~2020-11-17 12:05] MED LIST changes: -ASPIRIN ADULT L81 M3 PO; +ASPIRIN E.C. 8181 MG PO; +DERMACINRX5000 UNI1 PO; -FUROSEMIDE20 MG PO; +FUROSEMIDE40 MG PO; +NITROGLYCERIN0.4 M1 SL; +VITAMIN D3100 MCG PO
[2020-11-17 13:19] LABS: POTASSIUM 4.4 mmol/L (3.5-5.1); SODIUM 140 mmol/L (136-145)
[2020-11-17 13:20] LABS: CALCIUM 9.8 mg/dL (8.3-10.5)
[2020-11-17 13:21] LABS: GLUCOSE 137 mg/dL (65-105); TOTAL PROTEIN 6.8 g/dL (6.4-8.3)
[2020-11-17 13:22] LABS: CARBON DIOXIDE 34 mmol/L (22-29)
[2020-11-17 13:23] LABS: TOTAL BILIRUBIN 0.7 mg/dL (0.2-1.2)
[2020-11-17 13:26] LABS: HEMOGLOBIN 11.6 g/dL (12.5-16.0); MEAN CELL VOLUME 97 fl (78-100); MEAN CORPUSCULAR HEMOGLOBIN 29 pg (27-31); MEAN CORPUSCULAR HGB CONC 30 g/dL (33-37); MEAN PLATELET VOLUME 10.7 fl (7.4-10.4); PLATELET COUNT 226 K/mm3 (130-400); RED BLOOD COUNT 4.01 M/mm3 (4.10-5.30); RED CELL DISTRIBUTION WIDTH 14.7 % (11.5-14.5); WHITE BLOOD COUNT 8.7 K/mm3 (4.8-10.8)
[2020-11-17 13:27] LABS: AST-SGOT 7 U/L (5-34)
[2020-11-17 13:28] LABS: ALT/SGPT 9 U/L (0-55); LIPASE 14 U/L (8-78)
[2020-11-17 13:34] LABS: TROPONIN-I < 0.03 ng/mL (<0.030)
[2020-11-17 13:37] LABS: BAND 2 % (0-10); LYMPHOCYTE 12 % (20-51); MONOCYTE 4 % (3-10); NEUTROPHILS 79 % (42-75)
[2020-11-17 14:02] LABS: URINE APPEARANCE CLEAR; URINE BILIRUBIN NEGATIVE (NEGATIVE); URINE BLOOD NEGATIVE (NEGATIVE); URINE COLOR YELLOW; URINE GLUCOSE NEGATIVE (NEGATIVE); URINE KETONE NEGATIVE (NEGATIVE); URINE LEUKOCYTE ESTERASE NEGATIVE (NEGATIVE); URINE NITRATE NEGATIVE (NEGATIVE); URINE PROTEIN(semi-quant) TRACE mg/dL (NEGATIVE); URINE UROBILINOGEN NORMAL (NORMAL); URINE WBC 0-1 /hpf (0-3)
[2020-11-17] MEDS ORDERED: VITAMIN C PUR1000 MG PO (15:19)
[2020-11-17] MEDS ORDERED: CALCITRIOL0.5 MCG PO (15:20)
[2020-11-17] MEDS ORDERED: VITAMIN D21250 MC1 PO (15:22)
[2020-11-17] MEDS ORDERED: GABAPENTIN100 MG PO (15:24)
[2020-11-17] MEDS ORDERED: POTASSIUM CH2 MEQ/ML PO (15:24)
[2020-11-17] MEDS ORDERED: ATIVAN0.5 MG PO (15:25)
[2020-11-17] MEDS ORDERED: ALDACTONE 25MG25 MG PO (15:26)
[2020-11-17] MEDS ORDERED: TRAMADOL 50 MG TAB PO (15:27)
[2020-11-17] MEDS ORDERED: PHARMASSURE ZIN50 MG PO (15:28)
[2020-11-17 18:06] VITALS: BP 132/75
== END 2020-11-17 18:14 | disposition home or self-care (01) ==
LOC: ED 12:05
PROVIDERS: Nurse Practitioner Family
DX: R19.7 Diarrhea, unspecified (principal); R11.2 Nausea with vomiting, unspecified; R10.84 Generalized abdominal pain; I10 Essential (primary) hypertension; K21.9 Gastro-esophageal reflux disease without esophagitis; I25.10 Atherosclerotic heart disease of native coronary artery without angina pectoris; Z20.828 Contact with and (suspected) exposure to other viral communicable diseases; Z90.49 Acquired absence of other specified parts of digestive tract; Z90.710 Acquired absence of both cervix and uterus; Z87.891 Personal history of nicotine dependence; Z79.02 Long term (current) use of antithrombotics/antiplatelets; Z79.82 Long term (current) use of aspirin
CPT/HCPCS: J1885; J2405; J3490; J7030; Q9967

== ENCOUNTER → 2020-12-07 | Outpatient (CLI) | payer OTHER ==
[2020-11-17 18:06] VITALS: BP 132/75
[~2020-12-07] MED LIST changes: +ALDACTONE 25MG25 MG PO; +CALCITRIOL0.5 MCG PO; +GABAPENTIN100 MG PO; +PHARMASSURE ZIN50 MG PO; +POTASSIUM CH2 MEQ/ML PO; +TRAMADOL 50 MG TAB PO; +VITAMIN C PUR1000 MG PO; +VITAMIN D21250 MC1 PO
== END ==
LOC: LAB 11:28
DX: Z01.812 Encounter for preprocedural laboratory examination (principal); Z20.828 Contact with and (suspected) exposure to other viral communicable diseases

== ENCOUNTER → 2021-07-15 | Outpatient (CLI) | payer OTHER ==
[~2021-07-15] MED LIST changes: +BISOPROLOL FUMA10 M1 PO; +CARAFATE 1GM1 G PO; +ISOSORBIDE30 MG PO; +PROAIR HFA0.09 MG/AC IH; -VITAMIN D21250 MC1 PO; +VITAMIN D21250 MCG PO; +VITAMIN D3125 MC3 PO; +VOLTAREN ARTHRI20 GM TP
[2021-07-15 17:31] LABS: BASO # 0.03 (0.02-0.10); EOS # 0.29 (0.04-0.40); EOS % 3.4 % (1.0-5.0); HEMATOCRIT 42.4 % (37.0-47.0); HEMOGLOBIN 12.5 g/dL (12.5-16.0); LYMPH# 1.65 (1.50-4.00); MEAN CELL VOLUME 97 fl (78-100); MEAN CORPUSCULAR HEMOGLOBIN 29 pg (27-31); MEAN CORPUSCULAR HGB CONC 30 g/dL (33-37); MEAN PLATELET VOLUME 10.8 fl (7.4-10.4); MONO # 0.61 (0.20-0.80); NEU # 5.98 (1.40-6.50); PLATELET COUNT 258 K/mm3 (130-400); RED BLOOD COUNT 4.38 M/mm3 (4.10-5.30); RED CELL DISTRIBUTION WIDTH 15.9 % (11.5-14.5); WHITE BLOOD COUNT 8.6 K/mm3 (4.8-10.8)
[2021-07-15 17:39] LABS: ALBUMIN 4.2 g/dL (3.5-5.0)
[2021-07-15 17:40] LABS: POTASSIUM 4.3 mmol/L (3.5-5.1)
[2021-07-15 17:41] LABS: CALCIUM 10.9 mg/dL (8.3-10.5)
[2021-07-15 17:42] LABS: TOTAL PROTEIN 8.1 g/dL (6.4-8.3)
[2021-07-15 17:44] LABS: TOTAL BILIRUBIN 0.7 mg/dL (0.2-1.2)
[2021-07-15 17:49] LABS: MAGNESIUM 1.99 mg/dL (1.60-2.60)
[2021-07-15 17:50] LABS: D-DIMER 0.81 mg/L FEU (0.15-0.50)
== END ==
LOC: RAD 16:58
PROVIDERS: Internal Medicine
DX: I51.7 Cardiomegaly (principal); K90.9 Intestinal malabsorption, unspecified; I10 Essential (primary) hypertension

== ENCOUNTER → 2021-07-19 | Outpatient (CLI) | payer OTHER | LOC: RAD 12:36 | DX: I28.8 Other diseases of pulmonary vessels (principal) | CPT/HCPCS: Q9967 ==

== ENCOUNTER 2021-10-13 16:22 | Observation (INO) | payer OTHER ==
[~2021-10-13] VITALS: Ht 162.6 cm; Wt 170.8 kg
[~2021-10-13 16:22] MED LIST changes: -BISOPROLOL FUMA10 M1 PO; -CARAFATE 1GM1 G PO; -ISOSORBIDE30 MG PO; -PROAIR HFA0.09 MG/AC IH; -VITAMIN D3125 MC3 PO; -VOLTAREN ARTHRI20 GM TP
[2021-10-13 17:31] LABS: BASO # 0.02 K/mm3 (0.02-0.10); EOS # 0.09 K/mm3 (0.04-0.40); EOS % 1.2 % (1.0-5.0); HEMATOCRIT 37.3 % (37.0-47.0); HEMOGLOBIN 10.9 g/dL (12.5-16.0); LYMPH# 0.69 K/mm3 (1.50-4.00); MEAN CELL VOLUME 100 fl (78-100); MEAN CORPUSCULAR HEMOGLOBIN 29 pg (27-31); MEAN CORPUSCULAR HGB CONC 29 g/dL (33-37); MEAN PLATELET VOLUME 10.7 fl (7.4-10.4); MONO # 0.48 K/mm3 (0.20-0.80); NEU # 6.51 K/mm3 (1.40-6.50); PLATELET COUNT 198 K/mm3 (130-400); RED BLOOD COUNT 3.74 M/mm3 (4.10-5.30); RED CELL DISTRIBUTION WIDTH 15.4 % (11.5-14.5); WHITE BLOOD COUNT 7.8 K/mm3 (4.8-10.8)
[2021-10-13 17:52] LABS: POTASSIUM 4.1 mmol/L (3.5-5.1); SODIUM 141 mmol/L (136-145)
[2021-10-13 17:53] LABS: CALCIUM 10.2 mg/dL (8.3-10.5)
[2021-10-13 17:54] LABS: GLUCOSE 147 mg/dL (65-105); TOTAL PROTEIN 7.1 g/dL (6.4-8.3)
[2021-10-13 17:55] LABS: CARBON DIOXIDE 32 mmol/L (22-29)
[2021-10-13 17:56] LABS: TOTAL BILIRUBIN 0.7 mg/dL (0.2-1.2)
[2021-10-13 17:59] LABS: AST-SGOT 17 U/L (5-34)
[2021-10-13 18:00] LABS: ALT/SGPT 21 U/L (0-55)
[2021-10-13 18:11] LABS: TROPONIN-I < 0.03 ng/mL (<0.030)
[2021-10-13 18:25] LABS: URINE APPEARANCE HAZY; URINE BILIRUBIN 1+ (NEGATIVE); URINE BLOOD 50 ery/uL (NEGATIVE); URINE COLOR YELLOW; URINE GLUCOSE NEGATIVE (NEGATIVE); URINE KETONE NEGATIVE (NEGATIVE); URINE LEUKOCYTE ESTERASE NEGATIVE (NEGATIVE); URINE MUCUS PRESENT (NOT PRESENT); URINE NITRATE NEGATIVE (NEGATIVE); URINE PROTEIN(semi-quant) TRACE mg/dL (NEGATIVE); URINE UROBILINOGEN NORMAL (NORMAL)
[2021-10-13] MEDS ORDERED: ISOSORBIDE30 MG PO (20:20)
[2021-10-13] MEDS ORDERED: BISOPROLOL FUMA10 M1 PO (20:24)
[2021-10-13] MEDS ORDERED: CARAFATE 1GM1 G PO (20:30)
[2021-10-13] MEDS ORDERED: VOLTAREN ARTHRI20 GM TP (20:32)
[2021-10-13] MEDS ORDERED: PROAIR HFA0.09 MG/AC IH (20:32)
[2021-10-13] MEDS ORDERED: VITAMIN D3125 MC3 PO (20:34)
[2021-10-13 22:12] VITALS: BP 178/64
[2021-10-14 02:00] VITALS: BP 102/61
[2021-10-14 05:53] VITALS: BP 125/70
[2021-10-14 08:30] LABS: BASO # 0.02 K/mm3 (0.02-0.10); EOS # 0.14 K/mm3 (0.04-0.40); EOS % 1.8 % (1.0-5.0); HEMATOCRIT 37.2 % (37.0-47.0); HEMOGLOBIN 11.1 g/dL (12.5-16.0); LYMPH# 0.84 K/mm3 (1.50-4.00); MEAN CELL VOLUME 98 fl (78-100); MEAN CORPUSCULAR HEMOGLOBIN 29 pg (27-31); MEAN CORPUSCULAR HGB CONC 30 g/dL (33-37); MEAN PLATELET VOLUME 10.9 fl (7.4-10.4); MONO # 0.42 K/mm3 (0.20-0.80); NEU # 6.13 K/mm3 (1.40-6.50); PLATELET COUNT 211 K/mm3 (130-400); RED BLOOD COUNT 3.79 M/mm3 (4.10-5.30); RED CELL DISTRIBUTION WIDTH 15.5 % (11.5-14.5); WHITE BLOOD COUNT 7.6 K/mm3 (4.8-10.8)
[2021-10-14 08:38] LABS: POTASSIUM 3.7 mmol/L (3.5-5.1)
[2021-10-14 08:39] LABS: CALCIUM 10.2 mg/dL (8.3-10.5)
[2021-10-14 09:32] VITALS: BP 143/66
[2021-10-14 11:31] VITALS: BP 146/66
== END 2021-10-14 11:15 | disposition home or self-care (01) ==
LOC: ED 16:22 → MED/SURG 18:58
PROVIDERS: ADMIT Physician Assistant
DX: E87.70 Fluid overload, unspecified (principal); J44.9 Chronic obstructive pulmonary disease, unspecified; I25.10 Atherosclerotic heart disease of native coronary artery without angina pectoris; J96.10 Chronic respiratory failure, unspecified whether with hypoxia or hypercapnia; I71.2 Thoracic aortic aneurysm, without rupture; I10 Essential (primary) hypertension; I47.1 Supraventricular tachycardia; G60.9 Hereditary and idiopathic neuropathy, unspecified; K90.9 Intestinal malabsorption, unspecified; E66.01 Morbid (severe) obesity due to excess calories; G47.33 Obstructive sleep apnea (adult) (pediatric); E55.9 Vitamin D deficiency, unspecified; R19.7 Diarrhea, unspecified; G89.29 Other chronic pain; M79.606 Pain in leg, unspecified; R60.0 Localized edema; F32.A Depression, unspecified; Z90.710 Acquired absence of both cervix and uterus; Z90.49 Acquired absence of other specified parts of digestive tract; Z79.891 Long term (current) use of opiate analgesic; Z79.899 Other long term (current) drug therapy; Z79.82 Long term (current) use of aspirin; Z79.02 Long term (current) use of antithrombotics/antiplatelets
CPT/HCPCS: G0378; J1650; J1940

== ENCOUNTER → 2022-01-03 | Outpatient (CLI) | payer OTHER ==
[~2022-01-03] MED LIST changes: +BISOPROLOL FUMA10 M1 PO; +CARAFATE 1GM1 G PO; +ISOSORBIDE30 MG PO; +PROAIR HFA0.09 MG/AC IH; +VITAMIN D3125 MC3 PO; +VOLTAREN ARTHRI20 GM TP
[2022-01-03 14:45] LABS: BASO # 0.02 K/mm3 (0.02-0.10); EOS # 0.23 K/mm3 (0.04-0.40); EOS % 2.6 % (1.0-5.0); HEMATOCRIT 40.2 % (37.0-47.0); HEMOGLOBIN 12.1 g/dL (12.5-16.0); LYMPH# 1.12 K/mm3 (1.50-4.00); MEAN CELL VOLUME 96 fl (78-100); MEAN CORPUSCULAR HEMOGLOBIN 29 pg (27-31); MEAN CORPUSCULAR HGB CONC 30 g/dL (33-37); MEAN PLATELET VOLUME 10.5 fl (7.4-10.4); MONO # 0.63 K/mm3 (0.20-0.80); NEU # 6.88 K/mm3 (1.40-6.50); PLATELET COUNT 237 K/mm3 (130-400); RED BLOOD COUNT 4.18 M/mm3 (4.10-5.30); RED CELL DISTRIBUTION WIDTH 14.8 % (11.5-14.5); WHITE BLOOD COUNT 8.9 K/mm3 (4.8-10.8)
[2022-01-03 14:58] LABS: ALBUMIN 4.1 g/dL (3.5-5.0); POTASSIUM 4.3 mmol/L (3.5-5.1)
[2022-01-03 14:59] LABS: CALCIUM 10.9 mg/dL (8.3-10.5)
[2022-01-03 15:01] LABS: TOTAL PROTEIN 7.8 g/dL (6.4-8.3)
[2022-01-03 15:03] LABS: TOTAL BILIRUBIN 0.6 mg/dL (0.2-1.2)
[2022-01-03 15:07] LABS: MAGNESIUM 1.6 mg/dL (1.60-2.60)
== END ==
LOC: LAB 14:28
PROVIDERS: Internal Medicine
DX: J44.9 Chronic obstructive pulmonary disease, unspecified (principal); G47.33 Obstructive sleep apnea (adult) (pediatric); I71.2 Thoracic aortic aneurysm, without rupture; R06.00 Dyspnea, unspecified; I10 Essential (primary) hypertension; K90.9 Intestinal malabsorption, unspecified; I25.10 Atherosclerotic heart disease of native coronary artery without angina pectoris

== ENCOUNTER → 2022-04-08 | Outpatient (CLI) | payer OTHER ==
[2022-04-08 23:56] LABS: T3 FREE 2.8 pg/mL (1.7-3.7)
== END ==
LOC: LAB 15:27
PROVIDERS: Internal Medicine
DX: J44.9 Chronic obstructive pulmonary disease, unspecified (principal); G47.33 Obstructive sleep apnea (adult) (pediatric); I71.2 Thoracic aortic aneurysm, without rupture; I10 Essential (primary) hypertension; K90.9 Intestinal malabsorption, unspecified; I25.10 Atherosclerotic heart disease of native coronary artery without angina pectoris; E61.1 Iron deficiency; E53.8 Deficiency of other specified B group vitamins; F32.9 Major depressive disorder, single episode, unspecified; R73.09 Other abnormal glucose

== ENCOUNTER 2022-04-28 17:41 | Emergency (ER) | payer OTHER ==
[~2022-04-28] VITALS: Ht 10.2 cm; Wt 177.9 kg
[2022-04-28] MEDS ORDERED: CYANOCOBAL1000 MCG/1 IM (18:14)
[2022-04-28] MEDS ORDERED: DESVENLAFAXINE50 M3 PO (18:14)
[2022-04-28 18:33] LABS: BASO # 0.01 K/mm3 (0.02-0.10); EOS # 0.27 K/mm3 (0.04-0.40); EOS % 3.8 % (1.0-5.0); HEMATOCRIT 40.2 % (37.0-47.0); HEMOGLOBIN 12.4 g/dL (12.5-16.0); LYMPH# 0.88 K/mm3 (1.50-4.00); MEAN CELL VOLUME 98 fl (78-100); MEAN CORPUSCULAR HEMOGLOBIN 30 pg (27-31); MEAN CORPUSCULAR HGB CONC 31 g/dL (33-37); MONO # 0.51 K/mm3 (0.20-0.80); NEU # 5.45 K/mm3 (1.40-6.50); PLATELET COUNT 190 K/mm3 (130-400); RED BLOOD COUNT 4.12 M/mm3 (4.10-5.30); RED CELL DISTRIBUTION WIDTH 15.9 % (11.5-14.5); WHITE BLOOD COUNT 7.2 K/mm3 (4.8-10.8)
[2022-04-28 18:43] LABS: ALBUMIN 3.9 g/dL (3.5-5.0); POTASSIUM 3.9 mmol/L (3.5-5.1); SODIUM 141 mmol/L (136-145)
[2022-04-28 18:45] LABS: CALCIUM 10.3 mg/dL (8.3-10.5)
[2022-04-28 18:46] LABS: GLUCOSE 122 mg/dL (65-105)
[2022-04-28 18:47] LABS: CARBON DIOXIDE 32 mmol/L (22-29)
[2022-04-28 18:48] LABS: TOTAL BILIRUBIN 0.6 mg/dL (0.2-1.2)
[2022-04-28 18:51] LABS: AST-SGOT 12 U/L (5-34)
[2022-04-28 18:52] LABS: ALT/SGPT 19 U/L (0-55)
[2022-04-28 19:02] LABS: TROPONIN-I < 0.030 ng/mL (<0.030)
[2022-04-28 19:13] LABS: PROTHROMBIN TIME 10.6 SECONDS (9.0-12.0)
[2022-04-28 20:07] VITALS: BP 150/79
== END 2022-04-28 20:08 | disposition home or self-care (01) ==
LOC: ED 17:41
PROVIDERS: Nurse Practitioner
DX: R07.9 Chest pain, unspecified (principal); E66.01 Morbid (severe) obesity due to excess calories; Z95.5 Presence of coronary angioplasty implant and graft; Z87.891 Personal history of nicotine dependence; Z20.822 Contact with and (suspected) exposure to COVID-19; Z28.311 Partially vaccinated for COVID-19

== ENCOUNTER 2022-08-13 17:11 | Observation (INO) | payer OTHER ==
[~2022-08-13] VITALS: Ht 162.6 cm; Wt 173.6 kg
[~2022-08-13 17:11] MED LIST changes: +CYANOCOBAL1000 MCG/1 IM; +DESVENLAFAXINE50 M3 PO
[2022-08-13 18:00] LABS: BASO # 0.04 K/mm3 (0.02-0.10); EOS % 4.6 % (1.0-5.0); HEMATOCRIT 43.2 % (37.0-47.0); HEMOGLOBIN 13.6 g/dL (12.5-16.0); MEAN CELL VOLUME 99 fl (78-100); MEAN CORPUSCULAR HEMOGLOBIN 31 pg (27-31); MEAN CORPUSCULAR HGB CONC 32 g/dL (33-37); MEAN PLATELET VOLUME 12.2 fl (7.4-10.4); MONO # 0.52 K/mm3 (0.20-0.80); NEU # 4.38 K/mm3 (1.40-6.50); PLATELET COUNT 216 K/mm3 (130-400); RED BLOOD COUNT 4.36 M/mm3 (4.10-5.30); RED CELL DISTRIBUTION WIDTH 14.5 % (11.5-14.5); WHITE BLOOD COUNT 6.6 K/mm3 (4.8-10.8)
[2022-08-13 18:24] LABS: ALBUMIN 4.4 g/dL (3.4-4.8); POTASSIUM 4.3 mmol/L (3.5-5.1)
[2022-08-13 18:25] LABS: CALCIUM 10.3 mg/dL (8.3-10.5)
[2022-08-13 18:26] LABS: TOTAL PROTEIN 7.6 g/dL (6.2-8.1)
[2022-08-13 18:28] LABS: TOTAL BILIRUBIN 0.8 mg/dL (0.2-1.2)
[2022-08-13 18:33] LABS: D-DIMER 0.87 mg/L FEU (0.15-0.50)
[2022-08-13] MEDS ORDERED: NATURAL IRON65 MG PO (20:40)
[2022-08-13] MEDS ORDERED: ALBUTEROL1.25 MG/3 IH (20:45)
[2022-08-13] MEDS ORDERED: TRELEGY ELLIPT1 EACH IH (20:58)
[2022-08-13 21:49] VITALS: BP 123/72
[2022-08-14 05:24] VITALS: BP 120/56
[2022-08-14 09:48] VITALS: BP 144/75
[2022-08-14 14:15] VITALS: BP 123/69
[2022-08-14 18:31] VITALS: BP 133/82; BP 143/86
[2022-08-14 22:07] VITALS: BP 149/84
[2022-08-15 06:35] VITALS: BP 158/84
[2022-08-15 09:15] VITALS: BP 147/66
[2022-08-15 11:50] VITALS: BP 138/82
== END 2022-08-15 11:55 | disposition home or self-care (01) ==
LOC: ED 17:11 → MED/SURG 19:25 → ED 19:56 → MED/SURG 08-15 11:55
PROVIDERS: ADMIT Family Medicine
DX: R06.00 Dyspnea, unspecified (principal); E66.2 Morbid (severe) obesity with alveolar hypoventilation; I11.0 Hypertensive heart disease with heart failure; I50.33 Acute on chronic diastolic (congestive) heart failure; I25.10 Atherosclerotic heart disease of native coronary artery without angina pectoris; Z95.5 Presence of coronary angioplasty implant and graft; Z87.891 Personal history of nicotine dependence; Z20.822 Contact with and (suspected) exposure to COVID-19; M79.605 Pain in left leg; M79.604 Pain in right leg; Z68.44 Body mass index [BMI] 60.0-69.9, adult
CPT/HCPCS: G0378; J1650; J1940

== ENCOUNTER 2022-12-26 07:46 | Emergency (ER) | payer MEDICARE ==
[~2022-12-26] VITALS: Ht 162.6 cm; Wt 167.9 kg
[~2022-12-26 07:46] MED LIST changes: +ALBUTEROL1.25 MG/3 IH; +NATURAL IRON65 MG PO; +PAXLOVID CO-PA1 EACH PO; +TRELEGY ELLIPT1 EACH IH
[2022-12-26 09:16] LABS: BASO # 0.02 K/mm3 (0.02-0.10); EOS # 0.27 K/mm3 (0.04-0.40); EOS % 3.1 % (1.0-5.0); HEMATOCRIT 44.5 % (37.0-47.0); HEMOGLOBIN 13.9 g/dL (12.5-16.0); MEAN CELL VOLUME 102 fl (78-100); MEAN CORPUSCULAR HEMOGLOBIN 32 pg (27-31); MEAN CORPUSCULAR HGB CONC 31 g/dL (33-37); MONO # 0.58 K/mm3 (0.20-0.80); NEU # 6.83 K/mm3 (1.40-6.50); RED BLOOD COUNT 4.38 M/mm3 (4.10-5.30); RED CELL DISTRIBUTION WIDTH 14.1 % (11.5-14.5); WHITE BLOOD COUNT 8.7 K/mm3 (4.8-10.8)
[2022-12-26 09:18] LABS: ALBUMIN 4.2 g/dL (3.4-4.8); POTASSIUM 4.8 mmol/L (3.5-5.1); SODIUM 140 mmol/L (136-145)
[2022-12-26 09:20] LABS: TOTAL PROTEIN 7.4 g/dL (6.2-8.1)
[2022-12-26 09:21] LABS: CALCIUM 10.5 mg/dL (8.3-10.5); CARBON DIOXIDE 27 mmol/L (23-31)
[2022-12-26 09:22] LABS: GLUCOSE 197 mg/dL (65-105); TOTAL BILIRUBIN 0.7 mg/dL (0.2-1.2)
[2022-12-26 09:26] LABS: AST-SGOT 14 U/L (5-34)
[2022-12-26 09:27] LABS: ALT/SGPT 21 U/L (0-55)
[2022-12-26 09:35] LABS: TROPONIN-I < 0.030 ng/mL (<0.030)
[2022-12-26 09:45] LABS: PLATELET COUNT 200 K/mm3 (130-400)
[2022-12-26 11:23] LABS: URINE WBC 0 /hpf (0-3)
[2022-12-26 11:50] LABS: URINE APPEARANCE CLEAR; URINE BILIRUBIN NEGATIVE (NEGATIVE); URINE BLOOD NEGATIVE (NEGATIVE); URINE COLOR YELLOW; URINE GLUCOSE NEGATIVE (NEGATIVE); URINE KETONE NEGATIVE (NEGATIVE); URINE LEUKOCYTE ESTERASE NEGATIVE (NEGATIVE); URINE NITRATE NEGATIVE (NEGATIVE); URINE PROTEIN(semi-quant) NEGATIVE (NEGATIVE); URINE UROBILINOGEN NORMAL (NORMAL)
[2022-12-26 12:00] VITALS: BP 118/57
== END 2022-12-26 12:10 | disposition home or self-care (01) ==
LOC: ED 07:46
PROVIDERS: Nurse Practitioner
DX: F41.9 Anxiety disorder, unspecified (principal); E66.01 Morbid (severe) obesity due to excess calories; Z87.891 Personal history of nicotine dependence; Z20.822 Contact with and (suspected) exposure to COVID-19; Z79.899 Other long term (current) drug therapy; Z68.44 Body mass index [BMI] 60.0-69.9, adult

== ENCOUNTER 2023-10-12 18:49 | Emergency (ER) | payer MEDICARE ==
[~2023-10-12] VITALS: Ht 162.6 cm; Wt 165.8 kg
[~2023-10-12 18:49] MED LIST changes: +ALBUTEROL2.5 MG/3 M IH; +AMOXICILLIN AND1 TA2 PO; +ATROVENT I0.2 MG/1 M IH; +FUROSEMIDE40 MG; +NORCO 325 MG-51 TA1 PO; +REUSABLE NEBUL1 EACH MC
[2023-10-12 19:20] LABS: BASO # 0.02 K/mm3 (0.02-0.10); EOS # 0.31 K/mm3 (0.04-0.40); EOS % 3.8 % (1.0-5.0); HEMATOCRIT 41.6 % (37.0-47.0); HEMOGLOBIN 13.1 g/dL (12.5-16.0); LYMPH# 1.19 K/mm3 (1.50-4.00); MEAN CELL VOLUME 101 fl (78-100); MEAN CORPUSCULAR HEMOGLOBIN 32 pg (27-31); MEAN CORPUSCULAR HGB CONC 32 g/dL (33-37); MEAN PLATELET VOLUME 11.1 fl (7.4-10.4); MONO # 0.48 K/mm3 (0.20-0.80); NEU # 6.05 K/mm3 (1.40-6.50); PLATELET COUNT 216 K/mm3 (130-400); RED BLOOD COUNT 4.12 M/mm3 (4.10-5.30); RED CELL DISTRIBUTION WIDTH 14.2 % (11.5-14.5); WHITE BLOOD COUNT 8.1 K/mm3 (4.8-10.8)
[2023-10-12 19:24] LABS: ALBUMIN 4.1 g/dL (3.4-4.8)
[2023-10-12 19:25] LABS: CALCIUM 10.5 mg/dL (8.3-10.5)
[2023-10-12 19:26] LABS: TOTAL PROTEIN 7.3 g/dL (6.2-8.1)
[2023-10-12 19:28] LABS: TOTAL BILIRUBIN 0.6 mg/dL (0.2-1.2)
[2023-10-12 19:40] LABS: PROTHROMBIN TIME 10.1 SECONDS (9.0-12.0)
[2023-10-12] MEDS ORDERED: ZITHROMAX 250M250 MG PO (20:07)
[2023-10-12 20:46] VITALS: BP 160/76
== END 2023-10-12 20:47 | disposition home or self-care (01) ==
LOC: ED 18:49
PROVIDERS: Nurse Practitioner Family
DX: J18.9 Pneumonia, unspecified organism (principal); J44.9 Chronic obstructive pulmonary disease, unspecified; Z87.891 Personal history of nicotine dependence; Z99.81 Dependence on supplemental oxygen
CPT/HCPCS: J2930

== ENCOUNTER → 2023-12-11 | Outpatient (CLI) | payer MEDICARE ==
[~2023-12-11] MED LIST changes: +ZITHROMAX 250M250 MG PO
[2023-12-11 16:48] LABS: BASO # 0.02 K/mm3 (0.02-0.10); EOS # 0.24 K/mm3 (0.04-0.40); HEMATOCRIT 42.1 % (37.0-47.0); HEMOGLOBIN 13.4 g/dL (12.5-16.0); LYMPH# 1.19 K/mm3 (1.50-4.00); MEAN CELL VOLUME 99 fl (78-100); MEAN CORPUSCULAR HEMOGLOBIN 32 pg (27-31); MEAN CORPUSCULAR HGB CONC 32 g/dL (33-37); MONO # 0.43 K/mm3 (0.20-0.80); NEU # 6.11 K/mm3 (1.40-6.50); PLATELET COUNT 209 K/mm3 (130-400); RED BLOOD COUNT 4.26 M/mm3 (4.10-5.30); RED CELL DISTRIBUTION WIDTH 13.8 % (11.5-14.5)
[2023-12-11 16:54] LABS: ALBUMIN 4.4 g/dL (3.4-4.8)
[2023-12-11 16:56] LABS: CALCIUM 10.8 mg/dL (8.3-10.5)
[2023-12-11 16:57] LABS: TOTAL PROTEIN 7.4 g/dL (6.2-8.1)
[2023-12-11 16:59] LABS: TOTAL BILIRUBIN 0.6 mg/dL (0.2-1.2)
[2023-12-11 17:03] LABS: MAGNESIUM 1.74 mg/dL (1.60-2.60)
[2023-12-12 19:50] LABS: T3 FREE 2.9 pg/mL (1.7-3.7)
== END ==
LOC: LAB 16:23
PROVIDERS: Internal Medicine
DX: I10 Essential (primary) hypertension (principal); K90.9 Intestinal malabsorption, unspecified; E11.9 Type 2 diabetes mellitus without complications; E05.90 Thyrotoxicosis, unspecified without thyrotoxic crisis or storm

== ENCOUNTER → 2024-04-19 | Outpatient (CLI) | payer MEDICARE ==
[2024-06-07 12:04] LABS: CREATININE OTHER SOURCE AMS; HEPATITIS C VIRUS ANTIBODY NON REACTIVE
[2024-06-08 10:50] LABS: ALBUMIN 4.4 g/dL (3.4-4.8); CALCIUM 10.8 mg/dL (8.3-10.5); TOTAL BILIRUBIN 0.8 mg/dL (0.2-1.2); TOTAL PROTEIN 7.9 g/dL (6.2-8.1)
[2024-06-08 10:51] LABS: PH-URINE 5.5 (5.0 - 8.0); URINE APPEARANCE CLEAR (CLEAR); URINE BILIRUBIN NEGATIVE (NEGATIVE); URINE BLOOD NEGATIVE (NEGATIVE); URINE COLOR YELLOW (YELLOW); URINE GLUCOSE NEGATIVE (NEGATIVE); URINE KETONE NEGATIVE (NEGATIVE); URINE LEUKOCYTE ESTERASE NEGATIVE (NEGATIVE); URINE NITRATE NEGATIVE (NEGATIVE); URINE PROTEIN(semi-quant) NEGATIVE (NEGATIVE); URINE WBC 0-1 /hpf (0-3)
[2024-06-08 10:52] LABS: URINE MUCUS PRESENT (NOT PRESENT)
[2024-06-08 11:32] LABS: BASO # 0.01 K/mm3 (0.02-0.10); EOS # 0.29 K/mm3 (0.04-0.40); EOS % 3.5 % (1.0-5.0); HEMATOCRIT 44.3 % (37.0-47.0); HEMOGLOBIN 14.1 g/dL (12.5-16.0); LYMPH# 1.53 K/mm3 (1.50-4.00); MEAN CELL VOLUME 99 fl (78-100); MEAN CORPUSCULAR HEMOGLOBIN 32 pg (27-31); MEAN CORPUSCULAR HGB CONC 32 g/dL (33-37); MEAN PLATELET VOLUME 10.9 fl (7.4-10.4); MONO # 0.56 K/mm3 (0.20-0.80); PLATELET COUNT 221 K/mm3 (130-400); RED BLOOD COUNT 4.48 M/mm3 (4.10-5.30); RED CELL DISTRIBUTION WIDTH 13.9 % (11.5-14.5); WHITE BLOOD COUNT 8.3 K/mm3 (4.8-10.8)
== END ==
LOC: LAB 09:51
PROVIDERS: Internal Medicine
DX: Z11.59 Encounter for screening for other viral diseases (principal); I25.10 Atherosclerotic heart disease of native coronary artery without angina pectoris; E11.9 Type 2 diabetes mellitus without complications; K90.9 Intestinal malabsorption, unspecified

== ENCOUNTER → 2024-07-16 | Outpatient (CLI) | payer MEDICARE ==
[2024-07-16 12:26] LABS: BASO # 0.02 K/mm3 (0.02-0.10); EOS # 0.35 K/mm3 (0.04-0.40); EOS % 4.8 % (1.0-5.0); HEMATOCRIT 43.4 % (37.0-47.0); HEMOGLOBIN 13.7 g/dL (12.5-16.0); LYMPH# 1.31 K/mm3 (1.50-4.00); MEAN CELL VOLUME 99 fl (78-100); MEAN CORPUSCULAR HEMOGLOBIN 31 pg (27-31); MEAN CORPUSCULAR HGB CONC 32 g/dL (33-37); MEAN PLATELET VOLUME 11.4 fl (7.4-10.4); MONO # 0.39 K/mm3 (0.20-0.80); NEU # 5.26 K/mm3 (1.40-6.50); PLATELET COUNT 190 K/mm3 (130-400); RED CELL DISTRIBUTION WIDTH 13.8 % (11.5-14.5); WHITE BLOOD COUNT 7.4 K/mm3 (4.8-10.8)
[2024-07-16 12:33] LABS: ALBUMIN 4.3 g/dL (3.4-4.8)
[2024-07-16 12:35] LABS: CALCIUM 10.9 mg/dL (8.3-10.5)
[2024-07-16 12:36] LABS: TOTAL PROTEIN 7.6 g/dL (6.2-8.1)
[2024-07-16 12:38] LABS: TOTAL BILIRUBIN 0.9 mg/dL (0.2-1.2)
[2024-07-16 12:42] LABS: MAGNESIUM 1.99 mg/dL (1.60-2.60)
[2024-07-17 00:03] LABS: T3 FREE 2.7 pg/mL (1.7-3.7)
== END ==
LOC: LAB 12:08
PROVIDERS: Internal Medicine
DX: I25.10 Atherosclerotic heart disease of native coronary artery without angina pectoris (principal); K90.9 Intestinal malabsorption, unspecified; E11.9 Type 2 diabetes mellitus without complications; E05.90 Thyrotoxicosis, unspecified without thyrotoxic crisis or storm

== ENCOUNTER 2024-08-13 23:28 | Emergency (ER) | payer MEDICARE ==
[2024-08-13] MEDS ORDERED: Ketorolac 30 MG/ML VIAL IM ONE (23:45)
[2024-08-13] MEDS ORDERED: Lidocaine 4% Topical Patch TP ONE (23:45)
[2024-08-13] MEDS ORDERED: Cyclobenzaprine 10 MG TAB PO ONE (23:45)
[2024-08-14] MEDS ORDERED: CYCLOBENZAPRINE10 M1 PO (00:23)
[2024-08-14] MEDS ORDERED: Home HYDROcodone/Acetaminophen 5/325 MG #4 TABS/PACK PO ONE (00:30)
[2024-08-14 00:35] VITALS: BP 139/86
== END 2024-08-14 00:35 | disposition home or self-care (01) ==
LOC: ED 23:28
DX: M54.50 Low back pain, unspecified (principal); E66.9 Obesity, unspecified
CPT/HCPCS: J1885

== ENCOUNTER → 2024-10-10 | Outpatient (CLI) | payer MEDICARE ==
[~2024-10-10] MED LIST changes: +CYCLOBENZAPRINE10 M1 PO
== END ==
LOC: MAMMO 15:05
DX: Z12.31 Encounter for screening mammogram for malignant neoplasm of breast (principal)

== ENCOUNTER → 2024-12-02 | Day surgery (SDC) | payer MEDICARE ==
[~2024-12-02] MED LIST changes: +Lidocaine PF 2% (20 MG/ML) 5 ML VIAL ONE
== END ==
LOC: MSO 08:34
DX: Z12.11 Encounter for screening for malignant neoplasm of colon (principal); G47.33 Obstructive sleep apnea (adult) (pediatric); J45.909 Unspecified asthma, uncomplicated; Z86.0101 Personal history of adenomatous and serrated colon polyps; Z87.891 Personal history of nicotine dependence; Z99.81 Dependence on supplemental oxygen
CPT/HCPCS: G0105; 00812; J2704; J7120

== ENCOUNTER → 2024-12-27 | Outpatient (CLI) | payer MEDICARE ==
[~2024-12-27] MED LIST changes: -Lidocaine PF 2% (20 MG/ML) 5 ML VIAL ONE
[2024-12-27 16:56] LABS: BASO # 0.01 K/mm3 (0.02-0.10); EOS # 0.27 K/mm3 (0.04-0.40); EOS % 2.9 % (1.0-5.0); HEMATOCRIT 43.6 % (37.0-47.0); HEMOGLOBIN 13.7 g/dL (12.5-16.0); LYMPH# 1.66 K/mm3 (1.50-4.00); MEAN CELL VOLUME 100 fl (78-100); MEAN CORPUSCULAR HEMOGLOBIN 31 pg (27-31); MEAN CORPUSCULAR HGB CONC 31 g/dL (33-37); MEAN PLATELET VOLUME 11.3 fl (7.4-10.4); MONO # 0.57 K/mm3 (0.20-0.80); NEU # 6.89 K/mm3 (1.40-6.50); PLATELET COUNT 247 K/mm3 (130-400); RED BLOOD COUNT 4.37 M/mm3 (4.10-5.30); RED CELL DISTRIBUTION WIDTH 13.5 % (11.5-14.5); WHITE BLOOD COUNT 9.4 K/mm3 (4.8-10.8)
[2024-12-27 17:03] LABS: ALBUMIN 4.5 g/dL (3.4-4.8)
[2024-12-27 17:04] LABS: CALCIUM 11.1 mg/dL (8.3-10.5)
[2024-12-27 17:06] LABS: TOTAL PROTEIN 8.3 g/dL (6.2-8.1); URINE BILIRUBIN NEGATIVE (NEGATIVE); URINE BLOOD NEGATIVE (NEGATIVE); URINE COLOR YELLOW (YELLOW); URINE GLUCOSE NEGATIVE (NEGATIVE); URINE KETONE NEGATIVE (NEGATIVE); URINE LEUKOCYTE ESTERASE NEGATIVE (NEGATIVE); URINE NITRATE NEGATIVE (NEGATIVE); URINE PROTEIN(semi-quant) NEGATIVE (NEGATIVE)
[2024-12-27 17:11] LABS: URINE APPEARANCE SLIGHTLY CLOUDY (CLEAR)
[2024-12-27 17:12] LABS: MAGNESIUM 2.22 mg/dL (1.60-2.60); URINE MUCUS PRESENT (NOT PRESENT)
[2024-12-27 17:16] LABS: TOTAL BILIRUBIN 0.7 mg/dL (0.2-1.2)
== END ==
LOC: LAB 16:35
PROVIDERS: Internal Medicine
DX: I25.10 Atherosclerotic heart disease of native coronary artery without angina pectoris (principal); K90.9 Intestinal malabsorption, unspecified; E11.9 Type 2 diabetes mellitus without complications; E05.90 Thyrotoxicosis, unspecified without thyrotoxic crisis or storm